=== PATIENT | female | born 1930 | race Caucasian/White ===

== ENCOUNTER → 2016-04-06 | Outpatient (REF) | payer MEDICARE, OTHER ==
[2016-04-06 14:02] LABS: FOLATE 15.9 NG/ML; VITAMIN B12 LEVEL 877 PG/ML
== END ==
LOC: M LABNEURO 12:47
PROVIDERS: ATTEND Psychiatry & Neurology Neurology
DX: E03.9 Hypothyroidism, unspecified (principal); E53.8 Deficiency of other specified B group vitamins; F02.80 Dementia in other diseases classified elsewhere, unspecified severity, without behavioral disturbance, psychotic disturbance, mood disturbance, and anxiety; R74.8 Abnormal levels of other serum enzymes; Z79.899 Other long term (current) drug therapy